=== PATIENT | female | born 1990 | race Caucasian/White ===

== ENCOUNTER → 2024-12-26 | Outpatient (CLI) | payer BC, SELFPAY ==
[2024-12-26 18:55] LABS: CRP 6.20 mg/L (0.0-3.0)
[2024-12-28 09:09] LABS: ANTINUCLEAR ANTIBODIES DIRECT Negative (Negative)
== END | disposition home or self-care (01) ==
PROVIDERS: PCP Nurse Practitioner Family; Referring Provider Nurse Practitioner Family; Visit Provider Nurse Practitioner Family
DX: M25.50 Pain in unspecified joint (principal); R63.5 Abnormal weight gain
CPT/HCPCS: 84439; 84443; 85652; 86038; 86140; 86225

== ENCOUNTER → 2024-12-29 | Outpatient (CLI) | payer BC, SELFPAY ==
[2024-12-29 10:39] LABS: Glucose GTT- Fasting 89 mg/dL (70-99)
[2024-12-29 12:26] LABS: Glucose GTT-30 minutes 125 mg/dL (110-170)
[2024-12-29 13:21] LABS: Glucose GTT- 1 Hour 134 mg/dL (120-170)
[2024-12-29 14:18] LABS: Glucose GTT- 2 Hour 100 mg/dL (70-120)
== END | disposition home or self-care (01) ==
LOC: LAB 09:55
PROVIDERS: PCP Nurse Practitioner Family; Referring Provider Obstetrics & Gynecology Reproductive Endocrinology; Visit Provider Obstetrics & Gynecology Reproductive Endocrinology
DX: Z13.29 Encounter for screening for other suspected endocrine disorder (principal); E16.8 Other specified disorders of pancreatic internal secretion
CPT/HCPCS: 36415; 82951; 82952